=== PATIENT | female | born 1995 | race Caucasian/White ===

== ENCOUNTER 2021-03-13 14:01 | Emergency (ER) | payer MEDICAID, SELFPAY ==
[2021-03-13] MEDS ORDERED: Penicillin V Potassium 250 MG TAB ONE (14:42)
== END 2021-03-13 14:49 | disposition home or self-care (01) ==
LOC: BURERS 14:01
DX: K04.7 Periapical abscess without sinus (principal); F17.210 Nicotine dependence, cigarettes, uncomplicated
CPT/HCPCS: 99282